=== PATIENT | male | born 1980 | race Hispanic/Latino ===

== ENCOUNTER 2017-03-05 08:19 | Emergency (ER) | payer SELFPAY ==
[2017-03-05] MEDS ORDERED: Ondansetron ODT 4 MG TAB ONE (08:51)
[2017-03-05] MEDS ORDERED: Dicyclomine 20 MG TAB ONE (08:51)
== END 2017-03-05 09:04 | disposition home or self-care (01) ==
LOC: NAV ERS 08:19
DX: R11.2 Nausea with vomiting, unspecified (principal)
CPT/HCPCS: 99283; Q0162